=== PATIENT | female | born 1965 | race African-American/Black ===

== ENCOUNTER 2016-12-23 12:59 | Emergency (ER) | payer OTHER ==
[~2016-12-23] VITALS: Ht 152.4 cm; Wt 81.5 kg
[~2016-12-23 12:59] MED LIST: CHLO100T8 PO
[2016-12-23 13:12] VITALS: BP 142/89; PULSE 96; RESP 18; TEMP 98.7; O2SAT 98
[2016-12-23] MEDS ORDERED: CYCLOBENZAPRINE HCL 10 MG TAB PO ONE (14:15)
[2016-12-23] MEDS ORDERED: CYCL1TAB29 PO (14:16)
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
== END 2016-12-23 14:53 | disposition home or self-care (01) ==
LOC: NEPD 12:59
DX: S16.1XXA Strain of muscle, fascia and tendon at neck level, initial encounter (principal); S39.012A Strain of muscle, fascia and tendon of lower back, initial encounter; V49.40XA Driver injured in collision with unspecified motor vehicles in traffic accident, initial encounter
CPT/HCPCS: 99283